=== PATIENT | female | born 1950 | race Caucasian/White ===

== ENCOUNTER 2019-12-23 12:51 | Outpatient (CLI) | payer MEDICARE, OTHER, SELFPAY ==
--- NOTE | 2019-12-23 12:59 | MM_ITS ---
WS: [id number] BILATERAL DIGITAL SCREENING MAMMOGRAPHY WITH CAD CLINICAL INFORMATION: SCREENING HISTORY: Screening mammogram. No current complaints. COMPARISON: November 16, 2018 TECHNIQUE: Bilateral CC and MLO views. FINDINGS: The breasts are composed of heterogeneous fibroglandular density tissue, which can limit the detectio n of small underlying mass lesions. Bilateral breast implants. No suspicious mass, asymmetry, calcifi cations, or architectural distortion. No evidence of malignancy. MM/[place] [id number] IMPRESSION: BI-RADS: 2-Benign FOLLOW UP: 1 Year Follow-up Recommend return to annual screening mammography.
--- NOTE | 2019-12-23 14:29 | XR_ITS ---
WS: [id number] Bone mineral density performed on a [facility], 12/23/2019 Clinical data: POSTMENOPAUSAL Findings: The first 4 lumbar vertebral bodies demonstrated the bone mineral density of 1.082 g/cm2 for a young adult T score of -0.8. Measurement of the left hip reveals a bone mineral density of 0.787 g/cm2 with a young adult T score of -1.8. Measurement of the right hip reveals the bone mineral density of 0.817 g/cm2 for young adult T score of -1.5. XR/XR DEXA axial skeleton* [id number] Impression: 1. Normal bone mineral density of the lumbar spine. 2. Osteopenia of both hips.
== END 2019-12-23 12:52 | disposition home or self-care (01) ==
LOC: RADSHAW 12:57
PROVIDERS: Family Provider Physician Assistant Medical; PCP Physician Assistant Medical; Visit Provider Physician Assistant Medical
DX: Z12.31 Encounter for screening mammogram for malignant neoplasm of breast (principal); Z78.0 Asymptomatic menopausal state
CPT/HCPCS: 77067; 77080

== ENCOUNTER 2019-12-30 08:52 | Day surgery (SDC) | payer MEDICARE, OTHER, SELFPAY ==
[2019-12-29 15:34] VITALS: BMI 24.2
--- NOTE | 2019-12-30 09:03 | W.PM.OPSUD ---
Surgery/Procedure H&P Update DATE OF PROCEDURE: December 30, 2019 DATE H&P PERFORMED: 12/15/19 PLANNED PROCEDURE: Operation Date: 12/30/19 09:45 Proposed Procedures p Colonoscopy(Not Applicable) - Nazario Read MD
[2019-12-30 09:25] VITALS: BP 146/79; PULSE 78; RESP 20; TEMP 37; O2SAT 98
[2019-12-30] MEDS: sodium chloride 0.9% 1,000 ML 30 ML (09:29)
--- NOTE | 2019-12-30 10:13 | ANES.PREANE2 ---
Pre-Anesthetic Assessment Pre-Anesthetic Assessment: Height/Weight: Height 1.68 m Weight 68.039 kg Temp Pulse Resp BP Pulse Ox 98.6 F 78 20 H 146/79 98 12/30/19 09:25 12/30/19 09:25 12/30/19 09:25 12/30/19 09:25 12/30/19 09:25 Preop Diagnosis: screening Proposed Procedure: Operation Date: 12/30/19 09:45 Proposed Procedures p Colonoscopy(Not Applicable) - Nazario Read MD Was Beta Loraine taken within 24 hours: N/A Last intake: Intake Last Liquid Date 12/29/19 Last Liquid Time 20:00 Last Solid Date 12/28/19 Last Solid Time 18:00 Last Intake: 20:00 Social: Social History: No alcohol and No tobacco Exam: Pre-Anes Outpt Exam: alert, oriented x 3, clear to auscultation bilaterally and regular rate & rhythm Airway: Submandibular: WNL Cervical ROM: WNL MP: 1 Pulmonary: Pulmonary: None reported CV/HEM: CV/HEM: Anemia : : None reported Hepatic: Hepatic: None reported GI: GI: None reported Metabolic: Metabolic: None reported Musc/skel: Musc/skel: Lower Back Pain and OA/DJD Neuropsych: Neuropsych: Anxiety and Depression Anesthetic Plan: ASA status: 2 Anesthesia: Anesthesia Evaluation and MAC PFSH Anesthesia PFSH: Social History Smoking and tobacco status: never smoked Alcohol intake: never Household members: spouse Housing: House Marital status: History of recent travel: No Data Anesthesia Cardiac Studies: No Data to Display
[2019-12-30 10:46] VITALS: BP 149/86; PULSE 77; RESP 165; TEMP 37.1; O2SAT 100
--- NOTE | 2019-12-30 10:52 | ANE.PACU2 ---
 Inpatient post-anesthesia follow up: Airway intact: Yes Vital signs: Temperature 98.8 F Pulse Rate 77 Respiratory Rate 165 Blood Pressure 149/86 Pulse Oximetry 100 Oxygen Delivery Me thod Nasal Cannula Oxygen Flow Rate 3 Fraction of Inspir ed Oxygen Hydration adequate: Yes Nausea and vomiting: No Pain level: 3 Mental status: Baseline
[2019-12-30 10:56] VITALS: BP 158/96; PULSE 82; RESP 18; O2SAT 100
== END 2019-12-30 11:05 | disposition home or self-care (01) ==
PROVIDERS: Family Provider Physician Assistant Medical; PCP Physician Assistant Medical; Visit Provider Internal Medicine
PROC: 0DJD8ZZ Inspection of Lower Intestinal Tract, Via Natural or Artificial Opening Endoscopic (ICD-10-PCS; CPT 45378; principal; 2019-12-30 09:45)
DX: Z12.11 Encounter for screening for malignant neoplasm of colon (principal); Z86.010 Personal history of colon polyps; K63.89 Other specified diseases of intestine; M19.90 Unspecified osteoarthritis, unspecified site
CPT/HCPCS: 12345; 45378; J2704; J7030

== ENCOUNTER 2021-06-04 08:56 | Outpatient (CLI) | payer MEDICARE, OTHER, SELFPAY ==
--- NOTE | 2021-06-04 09:08 | MM_ITS ---
WS: [id number] BILATERAL SCREENING MAMMOGRAM WITH BOOKER DISPLACEMENT VIEWS. CAD PERFORMED. HISTORY: SCREENING COMPARISON: 12/23/2019 and 11/16/2018 Bilateral craniocaudal and mediolateral like views are performed. Booker displacement views in CC and MLO projection also performed. Breasts composition: The breasts are extremely dense, which lowers the sensitivity of mammography. T here is an asymmetry measuring 5 mm in the medial RIGHT breast seen best on the displacement view. Ma y have been present on the study from 2018. Recommend additional imaging at this time. The implants a re similar to the prior studies. MM/[place] [id number] IMPRESSION: BI-RADS: 0-Incomplete: Need additional imaging evaluation FOLLOW-UP: Need Additional Imaging RIGHT breast: Spot compression views (CC ). True ML. Ultrasound to follow if ab normality persists.
== END 2021-06-04 08:57 | disposition home or self-care (01) ==
LOC: RADSHAW 09:05
PROVIDERS: PCP Family Medicine; Visit Provider Family Medicine
DX: Z12.31 Encounter for screening mammogram for malignant neoplasm of breast (principal)
CPT/HCPCS: 77067

== ENCOUNTER 2021-06-13 12:01 | Outpatient (CLI) | payer MEDICARE, OTHER, SELFPAY ==
--- NOTE | 2021-06-13 12:08 | MM_ITS ---
WS: [id number] ADDITIONAL VIEWS RIGHT BREAST HISTORY: ABNORMAL MAMMOGRAM COMPARISON: 06/04/2021 and 12/23/2019 Compression views right CC and MLO projection. True ML also submitted. Asymmetry in the medial RIGHT breast resolves with additional imaging. No ultrasound necessary. MM/[place] [id number] IMPRESSION: BI-RADS: 2-Benign FOLLOW-UP: 1 Year Follow-up
== END 2021-06-13 12:02 | disposition home or self-care (01) ==
LOC: RADSHAW 12:05
PROVIDERS: PCP Family Medicine; Visit Provider Family Medicine
DX: R92.8 Other abnormal and inconclusive findings on diagnostic imaging of breast (principal); N64.89 Other specified disorders of breast
CPT/HCPCS: 77065

== ENCOUNTER 2021-08-01 10:20 | Outpatient (CLI) | payer MEDICARE, OTHER, SELFPAY | END 2021-08-01 10:21 | disposition home or self-care (01) | PROVIDERS: PCP Family Medicine; Visit Provider Internal Medicine | DX: E21.3 Hyperparathyroidism, unspecified (principal); R53.1 Weakness; R53.83 Other fatigue | CPT/HCPCS: 82533; 84443 ==

== ENCOUNTER 2021-08-13 15:22 | Outpatient (CLI) | payer MEDICARE, OTHER, SELFPAY ==
--- NOTE | 2021-08-13 15:45 | XR_ITS ---
WS: [id number] DEXA (DUAL ENERGY X-RAY ABSORPTIOMETRY) Bone mineral density was performed using a Kauli machine. HISTORY: check bone density COMPARISON: 12/23/2019 Lumbar spine BMD (L1-L4): 1.109 g/cm2 T score: -0.6 Z score: 0.9 Total hip BMD: Right: 0.801. T score: -1.6 Z score: -0.2 10 year probability of a major osteoporotic fracture is 19%. Compared to the prior study from 12/23/2019. Lumbar spine bone mineral density has increased by 2.5%. RIGHT hip bone mineral density has decreased by 2.0%. XR/XR DEXA axial skeleton* [id number] IMPRESSION: OSTEOPENIA based upon the WHO classification for females. Significant decrease in bone mineral density within the RIGHT hip since the lamont or study.
== END 2021-08-13 15:23 | disposition home or self-care (01) ==
LOC: RADWPI 15:28
PROVIDERS: PCP Family Medicine; Visit Provider Internal Medicine
DX: E21.3 Hyperparathyroidism, unspecified (principal); R53.83 Other fatigue; R53.1 Weakness
CPT/HCPCS: 77080

== ENCOUNTER 2021-08-16 09:19 | Outpatient (CLI) | payer MEDICARE, OTHER, SELFPAY ==
[2021-08-16 09:52] VITALS: BMI 25.3
--- NOTE | 2021-08-16 09:53 | NMCV_ITS ---
NM tom perf SPECT r/s* [id number] Gina Smith Age: 71 Gender: F : 1950 Exam Date: 08/16/2021 10:25 Ordering Phys: Michael Hilario Technologist: JEANNE Wilson Exam Location: [facility] Indications: CHEST PAIN STRESS TEST Please [facility] for [facility] IMAGE PROTOCOL Rest/Stress 1 Lexiscan Day Radiopharmaceutical Dose (mCi) Administration Site Administered by Rest: Tc-99m 11.0 IV JEANNE Gale Sestamibi Stress:Tc-99m 32.6 IV JEANNE Gale Sestamibi Rest: 16-Aug-2021 60 Discovery 630 Stress: 16-Aug-2021 30 Discovery 630 0.4mg Lexiscan. Supine position only as patient was unable to lay prone. SPECT RESULTS Technical Quality: Good Raw Data Analysis: Normal, Subdiaphragmatic activity Image Corrections: No attenuation or motion correction applied Summed Stress Score: 0 Summed Rest Score: 0 Summed Difference Score: 0 PERFUSION FINDINGS There is a small area of reversible perfusion defect in the apical lateral wall. This likely represents very small area of ischemia FUNCTIONAL RESULTS (calculated via Gated SPECT) Stress Image LV EF (%): 79 Stress EDV (mL):70 TID: 1.03 Stress ESV (mL):15 FUNCTIONAL FINDINGS: There is normal left ventricular systolic function. IMPRESSIONS 1. Abnormal myocardial perfusion imaging with a small area of ischemia noted in apical lateral [id number] 2. Normal LV systolic function Kenny Dong MD (Electronically Signed) Final Date: 16 August 2021 13:49 S
--- NOTE | 2021-08-16 09:53 | ECG_ITS ---
[facility] Test Date: 2021-08-16 Pat Name: Gina Smith Department: Room: Gender: Female Outpatient Case Manager: : 1950 Requested By: Michael Hilario Order Number: [id number] Jorge MD: Adore Little M.D. Interpretive Statements NAME OF STUDY: LEXISCAN SESTAMIBI STRESS TEST INDICATION: Chest Pain, PROCEDURE: At the baseline, the EKG revealed normal sinus rhythm with a poor R wave progression. Normal ST Ts. Need to splint treatments. The baseline blood pressure was 151/91 mm Hg with a heart rate of 77 beats/min. Lexiscan was infused over a period of 20 seconds. A total of 0.4 milligrams of Lexiscan was infused. The stress phase was continued for a total of 5 minutes. Heart rate at the end of the stress phase was 99 with a blood pressure 164/74. The EKG at the peak infusion revealed no significant changes. Sestamibi was injected 20 seconds after the Lexiscan infusion. Blood pressure at the end of the recovery phase was 164/84 with a heart rate of 87 per minute. CONCLUSION: 1. No significant EKG changes with the LexiScan infusion 2. No LexiScan induced chest pain or cardiac arrhythmia 3. Normal blood pressure and heart rate response 4. Sestamibi/sestamibi perfusion scan pending; see separate report. Electronically Signed On 08-23-2021 9:08:39 CDT by Adore Little M.D. [email or web address]
[2021-08-16] MEDS: regadenoson 0.4 Mg/5 ml Syringe IVP (11:16)
[2021-08-16] MEDS: aminophylline 25 mg/mL SDV 10 mL IVP (11:17)
[2021-08-16 11:20] VITALS: BP 164/84; PULSE 86
== END 2021-08-16 09:20 | disposition home or self-care (01) ==
LOC: CDL 09:23
PROVIDERS: PCP Family Medicine; Visit Provider Family Medicine
DX: R07.9 Chest pain, unspecified (principal)
CPT/HCPCS: 78452; 93017; A9500; J0280; J2785

== ENCOUNTER 2021-10-03 08:33 | Outpatient (CLI) | payer MEDICARE, OTHER, SELFPAY ==
--- NOTE | 2021-10-03 11:30 | NM_ITS ---
WS: [id number] NUCLEAR MEDICINE PARATHYROID SCAN HISTORY: E21.3 - Hyperparathyroidism, unspecified COMPARISON: None available. Patient is injected with 21.3 mCi technetium 99m Sestamibi. Static imaging of the anterior neck and u pper thorax submitted at injection time and one hour postinjection. Sternal notch marker and chin mar kers are placed. Normal uptake within the region of the thyroid gland on the early imaging. On delayed imaging there i s persistent uptake within the inferior neck bilaterally. Slightly greater increased activity within the inferior LEFT neck. This increased uptake is noted also on the oblique image is submitted. NM/NM parathyroid [id number] IMPRESSION: Findings are highly suspicious for bilateral inferior neck parathyroid adenomas .
== END 2021-10-03 08:34 | disposition home or self-care (01) ==
LOC: RAD 08:36
PROVIDERS: PCP Family Medicine; Visit Provider Internal Medicine
DX: E21.3 Hyperparathyroidism, unspecified (principal)
CPT/HCPCS: 78070; A9500

== ENCOUNTER → 2021-10-16 13:59 | Outpatient (BNVA) | payer MEDICARE, OTHER, SELFPAY | PROVIDERS: PCP Family Medicine; Visit Provider Internal Medicine | DX: E21.3 Hyperparathyroidism, unspecified (principal); N18.30 Chronic kidney disease, stage 3 unspecified; R53.83 Other fatigue; R53.1 Weakness | CPT/HCPCS: 99213; 99214 ==

== ENCOUNTER → 2021-11-18 10:55 | Outpatient (BNVA) | payer MEDICARE, OTHER, SELFPAY | PROVIDERS: PCP Family Medicine; Visit Provider Internal Medicine | DX: E21.3 Hyperparathyroidism, unspecified (principal); R94.39 Abnormal result of other cardiovascular function study | CPT/HCPCS: 80048 ==

== ENCOUNTER → 2021-12-03 12:46 | Outpatient (BNVA) | payer MEDICARE, OTHER, SELFPAY | PROVIDERS: PCP Family Medicine; Visit Provider Internal Medicine | DX: E21.3 Hyperparathyroidism, unspecified (principal); R53.83 Other fatigue; R53.1 Weakness; N18.30 Chronic kidney disease, stage 3 unspecified | CPT/HCPCS: 82310; 83970; 99213; 99214 ==

== ENCOUNTER 2021-12-03 14:06 | Outpatient (CLI) | payer MEDICARE, OTHER, SELFPAY ==
[2021-12-03 14:51] LABS: Calcium 10.6 mg/dL (8.5-10.5)
[2021-12-03 14:57] LABS: Parathyroid Hormone 77.3 pg/mL (15-65)
== END 2021-12-03 14:07 | disposition home or self-care (01) ==
PROVIDERS: PCP Family Medicine; Visit Provider Internal Medicine
DX: E21.3 Hyperparathyroidism, unspecified (principal); N18.30 Chronic kidney disease, stage 3 unspecified
CPT/HCPCS: 82310; 83970

== ENCOUNTER → 2022-02-20 13:16 | Outpatient (BNVA) | payer MEDICARE, OTHER, SELFPAY | PROVIDERS: PCP Family Medicine; Visit Provider Internal Medicine Cardiovascular Disease | DX: I10 Essential (primary) hypertension (principal); R53.1 Weakness; R53.83 Other fatigue; E21.3 Hyperparathyroidism, unspecified; M79.606 Pain in leg, unspecified | CPT/HCPCS: 99213 ==

== ENCOUNTER 2022-04-07 12:53 | Outpatient (CLI) | payer MEDICARE, OTHER, SELFPAY ==
--- NOTE | 2022-04-07 13:30 | USCV_ITS ---
Smith Gina Age: 71 Gender: F : 1950 Exam Date: 04/07/2022 13:21 Ordering Phys: Roosevelt Rod MD ([email or web address]) Technologist: Exam Location: [facility] [place] Indication: leg pain Risk Factors: Previous Vascular Surgery: RIGHT LEFT BP: 140.0 / 80.00 BP: 140.0/ 80.00 0 0 Waveform Velocity (cm/s) Velocity (cm/s) Waveform Triphasic 119.1 Iliac Prox 99.2 Triphasic Triphasic 105.8 Iliac Mid 129.0 Triphasic Triphasic 109.2 Iliac Distal 125.7 Biphasic Triphasic 79.4 CHIEF CONCIERGE 81.6 Biphasic Triphasic 89.3 SFA Prox 89.3 Biphasic Triphasic 98.1 SFA Mid 83.8 Biphasic Triphasic SFA Dist Biphasic 89.3 81.6 Triphasic 101.4 POP 65.1 Biphasic Biphasic 90.0 TITLE SEARCHER 93.7 Biphasic Biphasic 83.8 DPA 55.1 Biphasic 1.1 MOOKIE 1.1 FINDINGS Resting MOOKIE 1.1 bilaterally Near normal arterial Doppler waveforms bilaterally Normal Doppler velocities bilaterally CONCLUSIONS No significant arterial obstruction, bilaterally, based on the above findings Dr Adore Little MD [facility] (Electronically Signed) Final Date: 07 April 2022 19:36 S
== END 2022-04-07 12:54 | disposition home or self-care (01) ==
LOC: RAD 13:00
PROVIDERS: PCP Family Medicine; Visit Provider Internal Medicine Cardiovascular Disease
DX: M79.605 Pain in left leg (principal); M79.604 Pain in right leg; Z86.010 Personal history of colon polyps
CPT/HCPCS: 93925

== ENCOUNTER 2022-07-16 10:49 | Outpatient (CLI) | payer MEDICARE, OTHER, SELFPAY ==
--- NOTE | 2022-07-16 11:00 | MM_ITS ---
WS: [id number] BILATERAL SCREENING DIGITAL BREAST MAMMOGRAPHY WITH BOOKER DISPLACEMENT VIEWS. CAD PERFORMED. HISTORY: SCREENING COMPARISON: 06/13/2021, 06/04/2021 and 12/23/2019 Bilateral craniocaudal and mediolateral oblique views are performed with tomosynthesis and SM. Booker displacement views in CC and MLO projection also performed. Breasts composition: The breasts are heterogeneously dense, which may obscure small masses. Implants are intact. No extravasation or collapsed. Similar appearance of the implants in the fibroglandular tissue as compared to the prior study. No suspicious masses or calcifications. No distortion. MM/[place] [id number] IMPRESSION: BI-RADS: 2-Benign FOLLOW-UP: 1 Year Follow-up
== END 2022-07-16 10:50 | disposition home or self-care (01) ==
PROVIDERS: PCP Family Medicine; Visit Provider Family Medicine
DX: Z12.31 Encounter for screening mammogram for malignant neoplasm of breast (principal)
CPT/HCPCS: 77063; 77067

== ENCOUNTER → 2023-11-18 14:08 | Outpatient (BNVA) | payer MEDICARE, OTHER, SELFPAY | PROVIDERS: PCP Family Medicine; Visit Provider Specialist | DX: Z96.642 Presence of left artificial hip joint; M25.552 Pain in left hip | CPT/HCPCS: 73502; 99204 ==

== ENCOUNTER 2023-12-01 09:01 | Outpatient (CLI) | payer MEDICARE, OTHER, SELFPAY ==
--- NOTE | 2023-12-01 09:30 | NM_ITS ---
WS: [id number] THREE-PHASE BONE SCAN HISTORY: previous left total hip arthroplasty COMPARISON: Radiograph 11/18/2021 Patient is is injected with 25.8 mCi Tc99m HDP intravenously. Immediate angiographic phase imaging is performed over the area of concern. Static blood pool imaging also performed. Two-hour whole-body sc intigrams performed in anterior and posterior projections. Additional large field of view imaging sub mitted as necessary. Normal angiographic stasis and blood pool phases over the pelvis. On the delayed imaging there is a photopenic defect involving the LEFT hip at the site of the arthrop lasty. There is some very minimal symmetric uptake at the LEFT femoral head surrounding the expected location of the arthroplasty. There is also increased uptake along the acetabular portion of the LEFT hip arthroplasty. Moderate RIGHT SC joint arthritis. Mild AC joint arthritis. Normal soft tissue uptake. Normal renal u ptake. IMPRESSION: 1. No cellulitis or increased uptake on the blood pool or angiographic phases. 2. There is very mild increased uptake at the LEFT hip arthroplasty site. Increased uptake within th e region of the LEFT acetabulum and the femoral head surrounding the photopenic defect from the arthr oplasty. This may represent early changes of loosening. 3. SC joint arthritis.
== END 2023-12-01 09:02 | disposition home or self-care (01) ==
PROVIDERS: PCP Family Medicine; Visit Provider Specialist
DX: M13.852 Other specified arthritis, left hip (principal); Z96.642 Presence of left artificial hip joint
CPT/HCPCS: 78315; A9561

== ENCOUNTER → 2023-12-16 15:13 | Outpatient (BNVA) | payer MEDICARE, OTHER, SELFPAY | PROVIDERS: PCP Family Medicine; Visit Provider Specialist | DX: M25.552 Pain in left hip (principal) | CPT/HCPCS: 99214 ==

== ENCOUNTER 2024-06-26 06:00 | Outpatient (RCR) | payer MEDICARE, OTHER, SELFPAY | END 2024-07-25 23:59 | disposition home or self-care (01) | LOC: WPT 06:00 | PROVIDERS: PCP Family Medicine; Visit Provider Registered Nurse | DX: G89.4 Chronic pain syndrome (principal) | CPT/HCPCS: 97110; 97112; 97162; 97530 ==

== ENCOUNTER 2024-07-26 06:00 | Outpatient (RCR) | payer MEDICARE, OTHER, SELFPAY | END 2024-08-25 23:59 | disposition home or self-care (01) | LOC: WPT 06:00 | PROVIDERS: PCP Family Medicine; Visit Provider Registered Nurse | DX: G89.4 Chronic pain syndrome (principal) | CPT/HCPCS: 97110; 97112; 97530 ==